=== PATIENT | male | born 1940 | race Caucasian/White ===

== ENCOUNTER 2021-10-19 21:59 | Inpatient (IN) | payer MEDICARE ==
[~2021-10-19] VITALS: Ht 175.3 cm; Wt 61.2 kg
[2021-10-19] MEDS ORDERED: ASPIRIN 81MG CHEW TAB ONE (22:30)
[2021-10-19] MEDS ORDERED: ASPIRIN 325MG TAB ONE (22:30)
[2021-10-19] MEDS ORDERED: NITROGLYCERIN 1GM OINT 1 INCH/1GM TD ONE ×2 (22:30)
[2021-10-19] MEDS ORDERED: IPRATROPIUM/ALBUTEROL SULFATE 3 ML SOLUTION IH ONE (22:30)
[2021-10-19] MEDS ORDERED: ASPIRIN 325MG TAB PO ONE (22:30)
[2021-10-19 22:32] LABS: BASOPHILS % (AUTO) 0.4 % (0.0-5.0); EOSINOPHILS % (AUTO) 3.3 % (0.0-8.0); HEMATOCRIT 40.2 % (42-54); LYMPHOCYTES % (AUTO) 16.3 % (21.0-51.0); MEAN CORPUSCULAR HGB CONC 33.3 g/dL (32.0-36.0); MEAN CORPUSCULAR VOLUME 90.1 fL (79-99); MONOCYTES % (AUTO) 6.1 % (3.0-13.0); NEUTROPHILS % (AUTO) 73.3 % (40.0-77.0); PLATELET COUNT (AUTO) 304 K/uL (130-400); RED BLOOD CELL COUNT(AUTO) 4.46 MIL/uL (4.50-6.20); RED CELL DISTRIBUTION WIDTH 13.2 % (11.0-15.5)
[2021-10-19 22:37] LABS: CREATININE 0.9 mg/dL (0.5-1.5); POTASSIUM 3.4 mmol/L (3.5-5.1)
[2021-10-19 22:41] LABS: INR 0.94 (0.85-1.15); PROTHROMBIN TIME 10.3 SEC (9.6-11.6)
[2021-10-19 22:42] LABS: ALBUMIN 3.9 g/dL (3.5-5.0); BILIRUBIN,TOTAL 0.5 mg/dL (0.2-1.0); PARTIAL THROMBOPLASTIN TIME 24.3 SEC (26.3-35.5); TOTAL PROTEIN, SERUM 7.7 g/dL (6.0-8.3)
[2021-10-19 22:52] LABS: ABG BASE EXCESS -2.4 mmol/L (-2.0-3.0); ABG HCO3 24.4 mmol/L (21.0-28.0); ABG OXYGEN SATURATION 94.6 % (95.0-99.0); ABG PCO2 50 mmHg (35-48)
[2021-10-19] MEDS ORDERED: SOLU-MEDROL 125MG VIAL IVP ONE (23:00)
[2021-10-19] MEDS: LEVOFLOXACIN 500 MG/D5W 100 ML 100 ML IV SCH (23:08)
[2021-10-19 23:18] LABS: B-TYPE NATRIURETIC PEPTIDE 1240 pg/mL (0-100)
[2021-10-20] MEDS ORDERED: ONDANSETRON 4MG INJ IV PRN (01:30)
[2021-10-20] MEDS ORDERED: LEVOFLOXACIN 500 MG/D5W 100 ML 100 ML IV SCH (01:30)
[2021-10-20] MEDS ORDERED: ACETAMINOPHEN 325 MG TAB PO PRN (01:30)
[2021-10-20] MEDS: SOLU-MEDROL 125MG VIAL IV SCH ×2 (01:30→12:49)
[2021-10-20] MEDS: NITROGLYCERIN 1GM OINT 1 INCH/1GM TD SCH ×2 (01:30→09:20)
[2021-10-20 02:57] LABS: APPEARANCE,URINE Clear (CLEAR); BILIRUBIN,URINE Negative (NEGATIVE); COLOR,URINE Yellow (YELLOW); GLUCOSE, URINE (UA) Negative (NEGATIVE); KETONES,URINE 15 mg/dL (NEGATIVE); LEUKOCYTE ESTERASE ,URINE Negative (NEGATIVE); NITRATE,URINE Negative (NEGATIVE); OCCULT BLOOD,URINE Trace (NEGATIVE); PH,URINE 6.5 (5.0-8.0); PROTEIN,URINE POS 1+ mg/dL (NEGATIVE); UROBILINOGEN,URINE 0.2 mg/dL (0.2-1.0)
[2021-10-20 03:38] LABS: BACTERIA,URINE Rare /HPF (None Seen); RBC,URINE 0-1 /HPF (0-1); WBC,URINE 0-1 /HPF (0-1)
[2021-10-20 03:39] LABS: SQUAMOUS EPITHELIAL CELL,UR Rare /HPF (0-2)
[2021-10-20 04:45] LABS: BASOPHILS % (AUTO) 0.1 % (0.0-5.0); HEMATOCRIT 36.2 % (42-54); LYMPHOCYTES % (AUTO) 4.5 % (21.0-51.0); MEAN CORPUSCULAR VOLUME 91.2 fL (79-99); MONOCYTES % (AUTO) 1.7 % (3.0-13.0); NEUTROPHILS % (AUTO) 93.2 % (40.0-77.0); PLATELET COUNT (AUTO) 273 K/uL (130-400); RED BLOOD CELL COUNT(AUTO) 3.97 MIL/uL (4.50-6.20); RED CELL DISTRIBUTION WIDTH 13.2 % (11.0-15.5); WHITE BLOOD COUNT (AUTO) 15.3 K/uL (4.8-10.8)
[2021-10-20 05:00] LABS: CREATININE 0.9 mg/dL (0.5-1.5); MAGNESIUM 1.8 mg/dL (1.80-2.40); PHOSPHORUS 3.1 mg/dL (2.5-4.9); POTASSIUM 3.5 mmol/L (3.5-5.1)
[2021-10-20] MEDS: IPRATROPIUM/ALBUTEROL SULFATE 3 ML SOLUTION IH SCH ×3 (07:22→18:19)
[2021-10-20] MEDS: FAMOTIDINE 20MG TAB PO SCH (08:35)
[2021-10-20] MEDS: ENOXAPARIN SODIUM 40 MG/0.4 ML SYRINGE SQ SCH (08:35)
[2021-10-20] MEDS: ASPIRIN 81MG CHEW TAB PO SCH (08:35)
[2021-10-20] MEDS ORDERED: MAGNESIUM 2GM PREMIX 50ML 50 ML IV PRN (12:00)
[2021-10-20] MEDS ORDERED: POTASSIUM CHLORIDE 10% ELIXIR 20 MEQ/15 ML UDCUP PO PRN (12:00)
[2021-10-20] MEDS ORDERED: 0.9%NACL 1000ML 1,000 ML IV SCH (12:00)
[2021-10-20] MEDS ORDERED: POTASSIUM CHLORIDE 10MEQ/100ML 100 ML IV PRN (12:00)
[2021-10-20] MEDS ORDERED: LIDOCAINE HCL-MPF 1% 2ML VIAL IV PRN (12:00)
[2021-10-20] MEDS ORDERED: IOHEXOL-350 75 ML VIAL IV ONE (12:59)
[2021-10-20] MEDS: KCL 20 MEQ ERTAB PO PRN ×2 (13:37→15:30)
[2021-10-20] MEDS ORDERED: METOPROLOL TARTRATE 1 MG/ML 5ML VIAL IV ONE (17:45)
[2021-10-20] MEDS: FUROSEMIDE 20MG VIAL IV SCH (18:19)
[2021-10-20] MEDS ORDERED: DEXMEDETOMIDINE 400MCG/NS100ML IV SCH (19:30)
[2021-10-20] MEDS: METOPROLOL TARTRATE 25 MG TAB PO SCH (20:12)
[2021-10-20] MEDS: ATORVASTATIN 40 MG TABLET PO SCH (20:12)
[2021-10-20] MEDS: IPRATROPIUM 0.5 MG/2.5 ML INH IH SCH (21:00)
[2021-10-21] MEDS ORDERED: NOREPINEPHRIN 4MG/NS 250ML 250 ML IV SCH
[2021-10-21] MEDS ORDERED: NOREPINEPHRIN 4MG/NS 250ML 250 ML IV ONE (00:10)
[2021-10-21] MEDS: IPRATROPIUM/ALBUTEROL SULFATE 3 ML SOLUTION IH SCH ×5 (00:15→23:54)
[2021-10-21] MEDS: LEVOFLOXACIN 500 MG/D5W 100 ML 100 ML IV SCH ×2 (01:15→23:00)
[2021-10-21] MEDS: SOLU-MEDROL 125MG VIAL IV SCH ×2 (01:15→13:30)
[2021-10-21] MEDS ORDERED: DEXMEDETOMIDINE HCL 200 MCG/2 ML VIAL IV ONE (04:10)
[2021-10-21] MEDS: IPRATROPIUM 0.5 MG/2.5 ML INH IH SCH ×4 (05:17→18:00)
[2021-10-21 06:21] LABS: ALBUMIN 3.3 g/dL (3.5-5.0); BILIRUBIN,TOTAL 0.5 mg/dL (0.2-1.0); CREATININE 1.2 mg/dL (0.5-1.5); MAGNESIUM 2.2 mg/dL (1.80-2.40); POTASSIUM 4.2 mmol/L (3.5-5.1); TOTAL PROTEIN, SERUM 7.4 g/dL (6.0-8.3)
[2021-10-21] MEDS ORDERED: BUDE3CAP7 PO (06:21)
[2021-10-21] MEDS: FUROSEMIDE 20MG VIAL IV SCH ×2 (06:22→18:54)
[2021-10-21 07:19] LABS: BASOPHILS % (AUTO) 0.1 % (0.0-5.0); HEMATOCRIT 38.4 % (42-54); LYMPHOCYTES % (AUTO) 6.5 % (21.0-51.0); MEAN CORPUSCULAR HEMOGLOBIN 29.9 pg (27.0-33.0); MEAN CORPUSCULAR HGB CONC 33.3 g/dL (32.0-36.0); MEAN CORPUSCULAR VOLUME 89.7 fL (79-99); MONOCYTES % (AUTO) 3.2 % (3.0-13.0); NEUTROPHILS % (AUTO) 89.6 % (40.0-77.0); PLATELET COUNT (AUTO) 316 K/uL (130-400); RED BLOOD CELL COUNT(AUTO) 4.28 MIL/uL (4.50-6.20); RED CELL DISTRIBUTION WIDTH 13.5 % (11.0-15.5)
[2021-10-21] MEDS: METOPROLOL TARTRATE 25 MG TAB PO SCH ×2 (08:01→20:39)
[2021-10-21] MEDS: ENOXAPARIN SODIUM 40 MG/0.4 ML SYRINGE SQ SCH (08:03)
[2021-10-21] MEDS: ASPIRIN 81MG CHEW TAB PO SCH (08:03)
[2021-10-21] MEDS: FAMOTIDINE 20MG TAB PO SCH (08:03)
[2021-10-21] MEDS: MIDODRINE HCL 5 MG TABLET PO SCH ×2 (15:45→21:30)
[2021-10-21] MEDS: ATORVASTATIN 40 MG TABLET PO SCH (20:39)
[2021-10-22] MEDS: SOLU-MEDROL 125MG VIAL IV SCH (03:25)
[2021-10-22] MEDS: IPRATROPIUM 0.5 MG/2.5 ML INH IH SCH ×3 (06:00→12:53)
[2021-10-22] MEDS: IPRATROPIUM/ALBUTEROL SULFATE 3 ML SOLUTION IH SCH (06:11)
[2021-10-22 06:25] LABS: CREATININE 0.9 mg/dL (0.5-1.5); POTASSIUM 3.7 mmol/L (3.5-5.1)
[2021-10-22] MEDS ORDERED: IPRATROPIUM/ALBUTEROL SULFATE 3 ML SOLUTION IH PRN (06:30)
[2021-10-22] MEDS: FUROSEMIDE 20MG VIAL IV SCH (06:46)
[2021-10-22] MEDS ORDERED: LEVO500T90 PO ×2 (07:34→21:29)
[2021-10-22] MEDS: ENOXAPARIN SODIUM 40 MG/0.4 ML SYRINGE SQ SCH (08:56)
[2021-10-22] MEDS: METOPROLOL TARTRATE 25 MG TAB PO SCH (08:56)
[2021-10-22] MEDS: FAMOTIDINE 20MG TAB PO SCH (08:56)
[2021-10-22] MEDS: ASPIRIN 81MG CHEW TAB PO SCH (08:56)
[2021-10-22] MEDS: MIDODRINE HCL 5 MG TABLET PO SCH (08:56)
[2021-10-22] MEDS ORDERED: BUDESONIDE 3 MG CAP.ER.24H PO SCH (09:00)
[2021-10-22 16:45] VITALS: BP 133/88
[2021-10-23] MEDS ORDERED: ATOR40TA69 PO (07:14)
[2021-10-23] MEDS ORDERED: POTA-10 PO (07:23)
[2021-10-23] MEDS ORDERED: FURO20TA6 PO (07:23)
[2021-10-23] MEDS ORDERED: AEC81 PO (07:23)
== END 2021-10-22 21:30 | disposition home or self-care (01) | DRG 193 ==
LOC: EDH 21:59 → EDHIP 23:43 → 4AH 10-22 14:29 → EDHIP 10-22 21:30
PROVIDERS: ADMIT Internal Medicine; ATTEND Internal Medicine
PROC: 5A09357 Assistance with Respiratory Ventilation, Less than 24 Consecutive Hours, Continuous Positive Airway Pressure (ICD-10-PCS; principal; 2021-10-20)
DX: J18.9 Pneumonia, unspecified organism (principal); J96.01 Acute respiratory failure with hypoxia; J96.02 Acute respiratory failure with hypercapnia; I50.23 Acute on chronic systolic (congestive) heart failure; J44.0 Chronic obstructive pulmonary disease with (acute) lower respiratory infection; E87.2 Acidosis; K50.90 Crohn's disease, unspecified, without complications; I24.8 Other forms of acute ischemic heart disease; I42.0 Dilated cardiomyopathy; J44.1 Chronic obstructive pulmonary disease with (acute) exacerbation; Z20.822 Contact with and (suspected) exposure to COVID-19; M06.9 Rheumatoid arthritis, unspecified; E78.5 Hyperlipidemia, unspecified; E87.6 Hypokalemia; E83.42 Hypomagnesemia; I08.0 Rheumatic disorders of both mitral and aortic valves; Z96.641 Presence of right artificial hip joint; Z88.0 Allergy status to penicillin; Z87.891 Personal history of nicotine dependence; Z79.899 Other long term (current) drug therapy; Z82.49 Family history of ischemic heart disease and other diseases of the circulatory system
CPT/HCPCS: 36415; 36600; 71045; 71275; 80048; 80053; 80061; 81001; 82550; 82803; 83605; 83735; 83880; 84100; 84145; 84484; 85025; 85610; 85651; 85730; 86140; 86738; 87040; 87071; 87205; 87449; 87486; 87581; 87633; 87635; 87798; 87804; 93005; 93306; 93356; 93970; 94640; 94660; 94664; 94760; 99291; C9803; G0378; J1650; J1940; J1956; J2405; J2930; J3475; J3490; J7030; Q9967